=== PATIENT | male | born 1995 | race Caucasian/White ===

== ENCOUNTER 2023-10-23 14:59 | Emergency (ER) | payer SELFPAY ==
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
[2023-10-23 16:35] LABS: Absolute Eosinophils 0.3 K/uL (0-0.5); Absolute Monocytes 0.7 K/uL (0.1-1.3); Absolute Neutrophil 5.2 K/uL (1.8-8.0); Basophils % 0.5 % (0-1.3); Eosinophils % 2.7 % (0-4.4); Hematocrit 50.4 % (39.6-49.0); Hemoglobin 17.1 g/dL (13.6-17.9); Lymphocytes % 32.9 % (15.3-44.8); MCH 31.8 pg (27.0-35.0); MCHC 33.9 g/dL (32.0-36.0); MCV 93.8 fL (80-100); MPV 8.9 fL (7.6-11.3); Monocytes % 7.7 % (3.3-12.3); Neutrophils % 56.2 % (41.7-73.7); Platelets 235 thou/uL (152-406); RBC Red Blood Cell Count 5.38 M/uL (4.33-5.43); Red Cell Distribution Width 13.6 % (12.1-15.2)
[2023-10-23 16:36] LABS: Specific Gravity > 1.030 (1.005-1.030); Sqamous Epithelial <5 /HPF (None Seen); Urine Bacteria None Seen /HPF (<20); Urine Bilirubin NEGATIVE (Negative); Urine Blood Negative (Negative); Urine Clarity Clear (Clear); Urine Color Yellow (Yellow); Urine Culture Reflex Order NOT NEEDED; Urine Glucose NEGATIVE (Negative); Urine Ketones NEGATIVE (Negative); Urine Microscopic Reflex YN ORDER UMIC; Urine Mucus 2+ /HPF (None Seen); Urine Nitrite NEGATIVE (Negative); Urine Protein TRACE (Negative); Urine RBC <5 /HPF (None Seen); Urine Urobilinogen 1+ (Normal); Urine WBC <5 /HPF (<5); Urine pH 5.5 (5.0-7.0)
[2023-10-23 16:52] LABS: Albumin 4.5 g/dL (3.4-5.0); Albumin/Globulin Ratio 1.5 (1.1-1.8); Anion Gap 4.4 mEq/L (5.0-15.0); Bilirubin Total 0.5 mg/dL (0.2-1.0); Globulin 3.1 g/dL (2.3-3.5); Potassium 3.4 mEq/L (3.5-5.1); Protein, Total 7.6 g/dL (6.4-8.2)
--- NOTE | 2023-10-23 17:26 | RAD REPORT ---
EXAM DESCRIPTION: CT - Abdomen Pelvis W Contrast - 10/23/2023 4:58 pm CLINICAL HISTORY: Abdominal pain COMPARISON: none. TECHNIQUE: Computed axial tomography of the abdomen pelvis was obtained. 100 cc Isovue-300 was admin istered intravenously. Oral contrast was not requested which limits evaluation of bowel and appendix All CT scans are performed using dose optimization technique as appropriate and may include automated exposure control or mA/KV adjustment according to patient size. FINDINGS: The liver, spleen, pancreas, adrenal and kidneys appear unremarkable. There is no evidence of diverticulitis. Normal appendix 11 millimeters sclerosis left femoral IMPRESSION: 11 millimeters sclerosis left femoral neck is nonspecific. Follow-up x-ray 3 months nevin mmended assess stability
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
[2023-10-23 21:58] VITALS: TEMP 97.3
[2023-10-23 22:04] VITALS: BP 117/85; O2SAT 100
== END 2023-10-23 17:44 | disposition home or self-care (01) ==
LOC: ER 14:59
DX: R10.84 Generalized abdominal pain (principal)
CPT/HCPCS: 36415; 74177; 80053; 81001; 83690; 85025; 99284; Q9967